=== PATIENT | male | born 1995 | race Caucasian/White ===

== ENCOUNTER 2023-04-11 17:01 | Emergency (ER) | payer OTHER ==
[~2023-04-11] VITALS: Ht 193 cm; Wt 117.9 kg
[2023-04-11] MEDS ORDERED: KETOROLAC TROMETHAMINE 60 MG VIAL IM ONE (18:30)
[2023-04-11] MEDS ORDERED: DICLOFENAC SODI75 MG PO (20:09)
== END 2023-04-11 20:19 ==
LOC: ER 17:01
DX: S99.811A Other specified injuries of right ankle, initial encounter (principal); X58.XXXA Exposure to other specified factors, initial encounter; Y93.9 Activity, unspecified; Y92.9 Unspecified place or not applicable; Y99.9 Unspecified external cause status